=== PATIENT | female | born 1960 | race African-American/Black ===

== ENCOUNTER 2022-03-10 09:36 | Emergency (ER) | payer MEDICAID ==
[~2022-03-10] VITALS: Ht 177.8 cm; Wt 91.0 kg
[2022-03-10 10:42] LABS: BASOPHILS % 0.7 % (0.0-2.0); EOSINOPHILS % 5.9 % (0.0-5.0); HEMATOCRIT. 41.6 % (36.0-48.0); HEMOGLOBIN. 14.1 g/dL (12.0-16.0); LYMPHOCYTES % 24.2 % (20.0-50.0); MEAN CORPUSCULAR HEMOGLOBIN 31.2 pg (28.0-32.0); MEAN PLATELET VOLUME 7.1 fl (7.4-10.4); MONOCYTES % 8.4 % (2.0-8.0); NEUTROPHILS % 60.8 % (40.0-76.0); PLATELET 311 x1000/uL (130-400); RED BLOOD CELL COUNT 4.52 mill/uL (4.2-5.4)
[2022-03-10 10:44] LABS: CHLORIDE 106 mEq/L (98-107)
[2022-03-10 14:00] VITALS: BP 16/80
[2022-03-10] MEDS ORDERED: ACET-2708 MT (14:25)
== END 2022-03-10 14:25 | disposition home or self-care (01) ==
LOC: ER 09:36
DX: R07.9 Chest pain, unspecified (principal); J45.909 Unspecified asthma, uncomplicated
CPT/HCPCS: 36415; 71045; 80053; 83880; 84484; 85025; 93005; 99285

== ENCOUNTER 2025-05-11 09:59 | Emergency (ER) | payer MEDICAID, OTHER ==
[~2025-05-11] VITALS: Ht 175.3 cm; Wt 69.0 kg
[~2025-05-11 09:59] MED LIST: ACET-2708 MT
[2025-05-11 10:07] VITALS: BP 103/62; PULSE 97; RESP 18; TEMP 36.8; O2SAT 100; O2SAT 99
[2025-05-11] MEDS ORDERED: TC1C15 TP (10:58)
== END 2025-05-11 11:15 | disposition home or self-care (01) ==
LOC: ER 09:59
DX: L91.0 Hypertrophic scar (principal); J45.909 Unspecified asthma, uncomplicated; Z79.899 Other long term (current) drug therapy
CPT/HCPCS: 99283